=== PATIENT | female | born 1955 | race Caucasian/White ===

== ENCOUNTER 2021-05-10 09:13 | Emergency (ER) | payer MEDICARE, BC, SELFPAY ==
--- NOTE | ~2021-05-10 | CT_ITS ---
EXAMINATION: CT ABDOMEN AND PELVIS WITH CONTRAST CLINICAL INFORMATION: Left lower quadrant pain. Bloody diarrhea. COMPARISON: None TECHNIQUE: Multidetector volumetric images were obtained from the superior aspect of the liver through the pubic symphysis following administration 85 mL of Omnipaque 350 intravenous contrast. Sagittal and coronal reformatted images were obtained on the technologist's workstation. Oral contrast: Yes This CT examination was performed using dose optimization techniques as appropriate, variously including the following: *Automated exposure control *Adjustment of mA and/or kV according to patient size (this includes techniques or standardized protocols for targeted exams where dose is matched to indication/reason for exam; i.e. extremities or head) *Use of iterative reconstruction technique DLP: 598 mGy-cm FINDINGS: LUNG BASES: The visualized lung bases are unremarkable. LIVER, GALLBLADDER, AND BILIARY TREE: The liver is normal in size, shape, and attenuation. No focal hepatic lesion or biliary ductal dilatation is present. The gallbladder is unremarkable with no evidence of radiopaque gallstones, gallbladder wall thickening, or obvious pericholecystic inflammatory changes. PANCREAS: Unremarkable. SPLEEN: Unremarkable. ADRENAL GLANDS: Unremarkable. KIDNEYS AND URETERS: There are bilateral cysts, right greater than left. The largest cyst measures 3 cm in the right kidney. The kidneys are otherwise unremarkable. No imaging follow-up is needed. BLADDER: Unremarkable. GASTROINTESTINAL TRACT: There is diverticulosis of the colon. There is wall thickening of the distal left colon and stranding of the adjacent fat suggestive of mild diverticulitis. There is no evidence of obstruction, perforation or abscess. Small and large bowel is otherwise unremarkable. The appendix is unremarkable. The stomach is unremarkable.. ABDOMINAL WALL: No significant hernia is appreciated. LYMPH NODES: Normal. VASCULAR: Unremarkable. PELVIC VISCERA: Unremarkable. OSSEOUS STRUCTURES: Unremarkable. CT/CT abdomen pelvis w con IMPRESSION: Diverticulitis of the distal left colon. Bilateral renal cysts.
[2021-05-10 09:16] VITALS: BP 161/80; PULSE 91; RESP 20; TEMP 37.1; O2SAT 96; BMI 29.2
--- NOTE | 2021-05-10 11:29 | ED_ITS ---
HPI - Abdominal Pain General Chief Complaint: Abdominal Pain Stated Complaint: ABD PAIN Time Seen by Provider: 05/10/21 11:06 Source: patient Mode of arrival: ambulatory Limitations: no limitations History of Present Illness HPI narrative: 66 y/o healthy female presenting with acute onset of LLQ pain that started last night. She describes the pain as cramping. She was up frequently throughout the night with cold sweats and ongoing pain. She was nauseated but did not vomit. This morning she had an episode of blood streaked formed brown stool which prompted her to come to the ER for further evaluation. She has never had bloody stool before. No hx of any abdominal surgeries. She is not on anticoagulation or take NSAIDS regularly. She denies sick contacts. No urinary symptoms. MD elicited complaint: abdominal pain Pertinent past history: none Onset (ago): day(s) (1) Pain Consistency: constant Location: LLQ Severity: moderate Pain scale (0-10): 7 Quality: cramping Radiation: none Migration to: no migration Exacerbating factors: movement and other (palpation) Relieving factors: nothing Associated symptoms: nausea, chills and hematochezia (1 episode this morning) Related Data Previous Rx's Medication Instructions Recorded hydrocodone-acetaminophen 1 tab PO BID PRN #5 tab 05/10/21 ibuprofen 600 mg PO Q8H PRN #10 tab 05/10/21 levofloxacin 750 mg PO DAILY #10 tab 05/10/21 metronidazole [Flagyl] 500 mg PO Q12H #20 tab 05/10/21 ondansetron 4 mg PO Q8H PRN #7 tab 05/10/21 Allergies Allergy/AdvReac Type Severity Reaction Status Date / Time Unable to Assess Allergy Unverified 05/10/21 11:07 Review of Systems Review of Systems Constitutional: No Fever, + Chills ENT/Mouth: No sore throat, No Rhinorrhea, No Swallowing Difficulty Eyes: No Eye Pain, No Swelling, No Redness Cardiovascular: No Chest Pain, No SOB, No Orthopnea, No Edema Respiratory: No Cough, No Sputum, No Wheezing, No dyspnea Gastrointestinal: + Nausea, No Vomiting, No Diarrhea, + abdominal Pain, + Hematochezia, No Melena Genitourinary: No Dysuria, No Urinary Frequency, No Hematuria Musculoskeletal: No joint pain, No Myalgias Skin: No Skin Lesions, No rash Neuro: No Weakness, No Numbness, No Dizziness, No Headache Psych: + Anxiety/Panic, No Depression Heme/Lymph: No Bruising, No Lymphadenopathy Endocrine: No Polyuria, No Polydipsia Physical Exam Vital Signs: Vital Signs: Last Vital Signs Temp 98.9 F 05/10/21 13:47 Pulse 78 05/10/21 13:47 Resp 16 05/10/21 13:47 BP 138/87 05/10/21 13:47 Pulse Ox 98 05/10/21 13:47 Body Mass Index 29.2 Appearance: Alert. Oriented X3. No acute distress. Eyes: Pupils equal, round and reactive to light. ENT: Pharynx normal. Neck: Normal inspection. Neck supple. CVS: Normal heart rate and rhythm. Pulses normal. Respiratory: No respiratory distress. Breath sounds normal. Abdomen: Soft with significant LLQ tenderness, +rebound and guarding. normal +BS x4 Skin: Skin warm and dry. Normal skin color. Normal skin turgor. No rashes. Extremities: No lower extremity edema. Neuro: Oriented X 3. No motor deficit. No sensory deficit. Course Course Course Narrative: 66 y/o healthy female presenting with acute onset of LLQ pain last night and 1 episode of bloody stool today. She reports chills overnight. Concern for acute diverticulitis. Less likely appendicitis, cholecystitis or hemorrhoids. Will get labs and CT scan for further evaluation. Dispo pending results and improvement. Reevaluation(s) Reevaluation #1: No leukocytosis, lactic acid is normal. CT scan showing mild diverticulitis of distal left colon. Will give 1 dose of IV antibiotics here as well as IVF and 1 dose of IV toradol for some mild discomfort. She is stable for discharge home with PO anx, pain control, bowel rest and f/u with her doctor next week. We discussed management and warning signs to prompt urgent re- evaluation. Patient agrees with plan. MDM - Abdominal Pain Lab Data Result diagrams: 05/10/21 11:40 05/10/21 11:40 Labs: Lab Results 05/10/21 05/10/21 05/10/21 Range/Units 11:40 11:40 11:40 WBC 10.2 (4.8-10.8) X10*3/uL RBC 4.71 (4.20-5.50) X10*6/uL Hgb 12.8 (12.0-16.0) g/dl Hct 40.1 (37-47) % MCV 85.1 (80-98) fL MCH 27.2 (27.0-33.0) pg MCHC 31.9 (31.0-35.0) g/dl RDW 12.6 (11.0-16.0) % Plt Count 218 (160-400) X10*3/uL MPV 11.3 (9.4-12.3) fL Immature Gran % (Auto) 0.4 (0.0-0.4) % Neut % (Auto) 76.5 H (45-73) % Lymph % (Auto) 17.3 L (20-40) % [place] % (Auto) 4.8 (2-11) % Eos % (Auto) 0.8 (0-4) % Baso % (Auto) 0.2 (0-2) % Lymph # (Auto) 1.8 (1.2-4.9) X10*3/uL [place] # (Auto) 0.5 (0.1-1.2) X10*3/uL Eos # (Auto) 0.1 (0.0-0.4) X10*3/uL Baso # (Auto) 0.0 (0.0-0.2) X10*3/uL Abs Immat Gran (auto) 0.04 H (0.00-0.03) X10*3/uL Absolute Neuts (auto) 7.8 (2.0-8.3) X10*3/uL Absolute Nucleated RBC 0.000 (0.0-0.012) X10*3/uL Nucleated RBC % (auto) 0.0 (0.0-0.2) /100WBC Hold Blue Top SEE NOTE Sodium 141 (135-145) mmol/L Potassium 4.5 (3.3-5.1) mmol/L Chloride 108 (96-108) mmol/L Carbon Dioxide 27 (22-29) mmol/L Anion Gap 11 L (12-20) BUN 13 (9-16) mg/dL Creatinine 0.69 (0.5-1.4) mg/dL Estim Creat Clear Calc 72.8 Estimated GFR > 60 Random Glucose 99 (60-115) mg/dL Lactic Acid (0.5-2.0) mmol/L Calcium 9.1 (8.4-10.2) mg/dL Magnesium 2.3 (1.6-2.6) mg/dL Total Bilirubin 0.4 (0.0-1.0) mg/dL Direct Bilirubin < 0.2 (0.0-0.5) mg/dL AST 18 (5-31) U/L ALT 19 (0-31) U/L Alkaline Phosphatase 119 H (39-117) U/L Total Protein 6.8 (6.5-8.0) g/dL Albumin 4.1 (3.5-5.0) g/dL Lipase 18 (8-78) U/L 05/10/21 Range/Units 11:40 WBC (4.8-10.8) X10*3/uL RBC (4.20-5.50) X10*6/uL Hgb (12.0-16.0) g/dl Hct (37-47) % MCV (80-98) fL MCH (27.0-33.0) pg MCHC (31.0-35.0) g/dl RDW (11.0-16.0) % Plt Count (160-400) X10*3/uL MPV (9.4-12.3) fL Immature Gran % (Auto) (0.0-0.4) % Neut % (Auto) (45-73) % Lymph % (Auto) (20-40) % [place] % (Auto) (2-11) % Eos % (Auto) (0-4) % Baso % (Auto) (0-2) % Lymph # (Auto) (1.2-4.9) X10*3/uL [place] # (Auto) (0.1-1.2) X10*3/uL Eos # (Auto) (0.0-0.4) X10*3/uL Baso # (Auto) (0.0-0.2) X10*3/uL Abs Immat Gran (auto) (0.00-0.03) X10*3/uL Absolute Neuts (auto) (2.0-8.3) X10*3/uL Absolute Nucleated RBC (0.0-0.012) X10*3/uL Nucleated RBC % (auto) (0.0-0.2) /100WBC Hold Blue Top Sodium (135-145) mmol/L Potassium (3.3-5.1) mmol/L Chloride (96-108) mmol/L Carbon Dioxide (22-29) mmol/L Anion Gap (12-20) BUN (9-16) mg/dL Creatinine (0.5-1.4) mg/dL Estim Creat Clear Calc Estimated GFR Random Glucose (60-115) mg/dL Lactic Acid 0.8 (0.5-2.0) mmol/L Calcium (8.4-10.2) mg/dL Magnesium (1.6-2.6) mg/dL Total Bilirubin (0.0-1.0) mg/dL Direct Bilirubin (0.0-0.5) mg/dL AST (5-31) U/L ALT (0-31) U/L Alkaline Phosphatase (39-117) U/L Total Protein (6.5-8.0) g/dL Albumin (3.5-5.0) g/dL Lipase (8-78) U/L Discharge Plan Discharge Clinical Impression: Diverticulitis Patient Disposition: Home, Self-Care Instructions: Diverticulitis (ED), Diverticulitis Diet (ED) Additional Instructions: Your CT scan today showed mild diverticulitis. Take the prescribed antibiotics as directed. Start taking the metronidazole today. Start taking the levofloxacin tomorrow, you were given the 1st dose today in the ER. Allow your bowels to rest, recommend liquid diet for the next 48-72 hours. Take the prescribed medication as needed for pain. Do not drive after you take it, it can make you sleepy. Follow up with your doctor as needed. If you develop worsening abdominal pain, profuse vomiting or bloody diarrhea call 911 or come back to the ER for further evaluation. Prescriptions: New metronidazole [Flagyl] 500 mg tablet 500 mg PO Q12H Qty: 20 RF: 0 levofloxacin 750 mg tablet 750 mg PO DAILY Qty: 10 RF: 0 ibuprofen 600 mg tablet 600 mg PO Q8H PRN (Reason: pain) Qty: 10 RF: 0 hydrocodone-acetaminophen 5-325 mg tablet 1 tab PO BID PRN (Reason: pain) Qty: 5 RF: 0 ondansetron 4 mg tablet,disintegrating 4 mg PO Q8H PRN (Reason: nausea and vomiting) Qty: 7 RF: 0 Referrals: Yuni Coates MD [Primary Care Provider] - 3 days PMF Past Medical History Attestation statement: The following information was validated with the patient. Medical History Barretts esophagus Seasonal allergies Social History Social History Advance Directives: Yes Advance Directives Information Provided: Yes Advance Directives on File: No
[2021-05-10 11:46] LABS: MANUAL DIFF FLAG NO
[2021-05-10 11:48] LABS: Basophils Percent Auto 0.2 % (0-2); Eosinophils Absolute Auto 0.1 X10*3/uL (0.0-0.4); Eosinophils Percent Auto 0.8 % (0-4); Hematocrit 40.1 % (37-47); Hemoglobin 12.8 g/dl (12.0-16.0); Imm Gran Abs Auto 0.04 X10*3/uL (0.00-0.03); Imm Gran Pct Auto 0.4 % (0.0-0.4); Lymphocytes Absolute Auto 1.8 X10*3/uL (1.2-4.9); Lymphocytes Percent Auto 17.3 % (20-40); Mean Corpuscular HGB Conc 31.9 g/dl (31.0-35.0); Mean Corpuscular Hemoglobin 27.2 pg (27.0-33.0); Mean Corpuscular Volume 85.1 fL (80-98); Mean Platelet Volume 11.3 fL (9.4-12.3); Monocytes Absolute Auto 0.5 X10*3/uL (0.1-1.2); Monocytes Percent Auto 4.8 % (2-11); Neutrophils Absolute Auto 7.8 X10*3/uL (2.0-8.3); Neutrophils Percent Auto 76.5 % (45-73); Platelet Count 218 X10*3/uL (160-400); Red Blood Count 4.71 X10*6/uL (4.20-5.50); Red Cell Distribution Width 12.6 % (11.0-16.0); White Blood Count 10.2 X10*3/uL (4.8-10.8)
[2021-05-10 12:08] LABS: Lactic Acid 0.8 mmol/L (0.5-2.0)
[2021-05-10 12:13] LABS: Alanine Aminotransferase 19 U/L (0-31); Albumin Level 4.1 g/dL (3.5-5.0); Alkaline Phosphatase 119 U/L (39-117); Anion Gap 11 (12-20); Aspartate Amino Transferase 18 U/L (5-31); Bilirubin Direct < 0.2 mg/dL (0.0-0.5); Bilirubin Total 0.4 mg/dL (0.0-1.0); Blood Urea Nitrogen 13 mg/dL (9-16); Calcium 9.1 mg/dL (8.4-10.2); Carbon Dioxide 27 mmol/L (22-29); Chloride 108 mmol/L (96-108); Creatinine Clr Calc Pharmacy 72.8; Estimated Glomerular Filt Rate > 60; Glucose Random 99 mg/dL (60-115); Lipase 18 U/L (8-78); Magnesium 2.3 mg/dL (1.6-2.6); Potassium 4.5 mmol/L (3.3-5.1); Sodium 141 mmol/L (135-145); Total Protein 6.8 g/dL (6.5-8.0)
[2021-05-10] MEDS: iohexoL 350 MG/ML 100 ML INFUS..BTL IV (12:33)
[2021-05-10] MEDS: 0.9 % Sodium Chloride 1,000 ML 999 ML IVCONT (13:44)
[2021-05-10] MEDS: levoFLOXacin/D5W 750 MG/150 ML PIGGYBACK 100 MG IV (13:44)
[2021-05-10 13:47] VITALS: BP 138/87; PULSE 78; RESP 16; TEMP 37.2; O2SAT 98
== END 2021-05-10 15:17 | disposition home or self-care (01) ==
PROVIDERS: Physician Assistant; Emergency Provider Emergency Medicine Emergency Medical Services; PCP Internal Medicine Geriatric Medicine
DX: K57.32 Diverticulitis of large intestine without perforation or abscess without bleeding (principal); Q61.02 Congenital multiple renal cysts
CPT/HCPCS: 36415; 74177; 80048; 80076; 83605; 83690; 83735; 85025; 96361; 96365; 96375; 99284; J1956; Q9967

== ENCOUNTER 2021-09-03 06:23 | Day surgery (SDC) | payer MEDICARE, BC, SELFPAY ==
[2021-08-29 11:35] VITALS: BMI 26.2
--- NOTE | 2021-09-02 11:42 | P.CONAN_ITS ---
Documented by User: Mariluz Calabrese NP 09/02/21 11:43 HPI - Anesthesia Eval Consult details Narrative: 66yo F for Upper Endoscopy and Colonoscopy [facility] Past Medical History Medical History Back pain Barretts esophagus Elevated cholesterol Migraines Seasonal allergies Surgical History Surgical History History of esophagogastroduodenoscopy (EGD) Hx of colonoscopy Social History Social History (Updated 08/29/21 @ 11:35 by Lorena Jacques RN) Patient Tobacco Use Status: Former Tobacco user Quit Date: Use of substances other than those prescribed or required for medical reasons: No Are you DNR?: No Advance Directives: No Advance Directives Information Provided: No (mailed info) Advance Directives on File: No Meds Allergies Allergy/AdvReac Type Severity Reaction Status Date / Time No Known Allergies Allergy Verified 08/29/21 11:34 Home Medications Medication Instructions Recorded Confirmed Last Taken Type loratadine 10 mg tablet (Claritin) 10 mg PO DAILY 08/29/21 09/03/21 09/03/21 05:00 History pantoprazole 40 mg tablet,delayed 1 tab PO DAILY@1700 08/29/21 08/29/21 Unknown History release Exam Exam Date and Time: September 02, 2021 1142 Height,Weight and Vital Signs: Height 5 ft 3 in Weight 67.132 kg Assessment and Plan Assessment Anesthesia Assessment: Chart Reviewed Documented by User: Manny Lynch MD 09/03/21 07:36 [facility] Past Medical History Medical History Back pain Barretts esophagus Elevated cholesterol Migraines Seasonal allergies Family History Family history of problems with anesthesia: No Surgical History Surgical History History of esophagogastroduodenoscopy (EGD) Hx of colonoscopy History of Problems with Anesthesia: No Social History Social History (Updated 08/29/21 @ 11:35 by Lorena Jacques RN) Patient Tobacco Use Status: Former Tobacco user Quit Date: Use of substances other than those prescribed or required for medical reasons: No Are you DNR?: No Advance Directives: No Advance Directives Information Provided: No (mailed info) Advance Directives on File: No Meds Allergies Allergy/AdvReac Type Severity Reaction Status Date / Time No Known Allergies Allergy Verified 08/29/21 11:34 Home Medications Medication Instructions Recorded Confirmed Last Taken Type loratadine 10 mg tablet (Claritin) 10 mg PO DAILY 08/29/21 09/03/21 09/03/21 05:00 History pantoprazole 40 mg tablet,delayed 1 tab PO DAILY@1700 08/29/21 08/29/21 Unknown History release Exam Airway Mallampati Class: II TM Dist: >3cm Neck ROM: Full Other: Bug bite on upper left lip Assessment and Plan Assessment Anesthesia Assessment: Anesthesia Plan Discussed Final Anesthetic Review Family History of Problems with Anesthesia: No History of Problems with Anesthesia: No NPO: Yes ASA Class: II Final Preanesthetic Review: No Changes in Pt Med Stat, Meds/Allgs Chart Reviewed, Consent Obtained/Reviewed and Anes Risks/Benef Reviewed Patient Risk: Low Procedure Risk: Low Anesthetic Plan Anesthetic Plan: MAC: Disposition: Standard PACU
[2021-09-03 06:48] VITALS: BP 151/83; PULSE 77; RESP 16; TEMP 35.7; O2SAT 98
[2021-09-03] MEDS: Lactated Ringers 1,000 ML 100 ML IVCONT (06:52)
--- NOTE | 2021-09-03 07:21 | MHC.SHP ---
Pre-Procedural Eval Section A Date of Service: 09/03/21 Section B Chief Complaint: Diverticulitis,miller's Details of Present Illness: see H&P no changes Relevant Family History (Specify if Yes): No Relevant Social History: None Present Medications: see Short Stay Collaborative assessment Medical History: No relevant PMH Allergies: Allergies Allergy/AdvReac Type Severity Reaction Status Date / Time No Known Allergies Allergy Verified 08/29/21 11:34 Review of Systems Sugical H&P ROS: Negative: Constitution, Cardiovascular, Respiratory, Neurological, Psychiatric, Hem-Onc, Allergic/Immunologic, Gastrointestinal, Genitourinary, Musculoskeletal, Integumentary, Endocrine and Eyes/Ears/Nose/Throat Exam Surgical H&P Exam: Normal: HEENT, Normal: Heart, Normal: Lungs, Normal: Extremities, Normal: Abdomen, Normal: Skin and Normal: Neurological Plan Diagnosis/Plan: Unchanged I have reviewed the history and physical and performed a pertinent physical examination on my patient. No changes have occurred unless specified.
--- NOTE | 2021-09-03 08:06 | PM.OP ---
Brief Operative Note Date of Service: 09/03/21 Pre-op diagnosis: barretts,diverticulitis Post-op diagnosis: same Procedure: EGD,colon Surgeon: Ritchie Mason Anesthesia: MAC Was an Patient Scheduling Coordinator used for this Procedure?: No Estimated blood loss (mL): 2 Pathology: other (bxs egj) Condition: stable Disposition: PACU
[2021-09-03 08:09] VITALS: BP 84/40; PULSE 73; RESP 16; TEMP 36.7; O2SAT 98
[2021-09-03 08:24] VITALS: BP 96/61; PULSE 69; RESP 16; TEMP 36.7; O2SAT 96
[2021-09-03 08:39] VITALS: BP 120/63; PULSE 60; RESP 17; TEMP 36.7; O2SAT 98
--- NOTE | 2021-09-03 09:49 | OP_ITS ---
SURGEON: Ritchie Mason MD INDICATIONS: 1. Salazar's esophagus. 2. Diverticulitis. PREOPERATIVE DIAGNOSIS: POSTOPERATIVE DIAGNOSIS: PROCEDURE PERFORMED: Upper endoscopy with biopsy, colonoscopy to the terminal ileum. ESTIMATED BLOOD LOSS: COMPLICATIONS: ANESTHESIA: ASSISTANTS: SPECIMENS: MEDICATIONS: Monitored anesthesia care. DESCRIPTION OF PROCEDURE: History and physical performed. The risks and benefits of the procedure were explained to the patient. Informed consent was obtained. The patient was placed in the left lateral decubitus position. The Olympus video gastroscope was introduced into the esophagus, stomach, and duodenum. Examination was performed and the scope was removed. She tolerated the procedure well and was repositioned for colonoscopy. Digital rectal exam was performed and was found to be normal. The Olympus pediatric video colonoscope was introduced into the rectum and advanced to the cecum without difficulty. The cecum was identified by transillumination, palpation, and identification of ileocecal valve. Examination was performed and the scope was removed. She tolerated the both procedures well and was taken to recovery area in stable condition. FINDINGS: UPPER ENDOSCOPY: Esophagus: The esophagus showed an irregular EG junction. There was no esophagitis. Biopsies were obtained from the EG junction. There were no raised lesions or ulcerated areas. Stomach: The stomach showed no evidence of masses, ulcers, or lesions except for several small benign-appearing polyps in the body and fundus consistent with fundic gland polyps. Duodenum: The bulb and second portion were normal. COLONOSCOPY: The terminal ileum was examined and appeared normal. The visualized colonic mucosa was within normal limits without evidence of masses or ulcers. There was mild to moderate diverticulosis involving the sigmoid without any evidence of diverticulitis. No polyps were identified. The quality of the prep was good. Retroflexed examination was normal. IMPRESSION: 1. Salazar's esophagus. 2. Diverticulosis. RECOMMENDATIONS: 1. Follow up the biopsy results. 2. Repeat colonoscopy is recommended in 10 years for average risk individuals. MD BOBO Marin/SOLA / [id number]
== END 2021-09-03 09:10 | disposition home or self-care (01) ==
PROVIDERS: PCP Internal Medicine Geriatric Medicine; Visit Provider Internal Medicine Gastroenterology
PROC: (CPT 45378; principal; 2021-09-03 07:30)
DX: K57.30 Diverticulosis of large intestine without perforation or abscess without bleeding (principal); Z86.010 Personal history of colon polyps; K31.7 Polyp of stomach and duodenum; K22.70 Barrett's esophagus without dysplasia; K21.9 Gastro-esophageal reflux disease without esophagitis; Z79.899 Other long term (current) drug therapy
CPT/HCPCS: 45378; 43239; 88305; J3010

== ENCOUNTER 2021-10-16 11:30 | Outpatient (REF) | payer MEDICARE, BC, SELFPAY ==
[2021-10-16 12:43] LABS: Hematocrit 41.9 % (37.0-47.0); Hemoglobin 13.2 g/dl (12.0-16.0); Mean Corpuscular HGB Conc 31.5 g/dl (31.0-35.0); Mean Corpuscular Hemoglobin 27.3 pg (27.0-33.0); Mean Corpuscular Volume 86.6 fL (80.0-98.0); Mean Platelet Volume 11.9 fL (9.4-12.3); Platelet Count 233 X10*3/uL (160-400); Red Blood Count 4.84 X10*6/uL (4.20-5.50); White Blood Count 8.6 X10*3/uL (4.8-10.8)
[2021-10-16 13:11] LABS: Alanine Aminotransferase 19 U/L (0-31); Albumin Level 4.2 g/dL (3.5-5.0); Alkaline Phosphatase 113 U/L (39-117); Aspartate Amino Transferase 17 U/L (5-31); Bilirubin Direct < 0.2 mg/dL (0.0-0.5); Bilirubin Total 0.4 mg/dL (0.0-1.0); Blood Urea Nitrogen 18 mg/dL (9-16); Estimated Glomerular Filt Rate > 60; Lipase 33 U/L (8-78); Total Protein 7.2 g/dL (6.5-8.0)
== END 2021-10-16 11:31 | disposition home or self-care (01) ==
LOC: HO.LAB 11:30
PROVIDERS: PCP Internal Medicine Geriatric Medicine; Visit Provider Internal Medicine Gastroenterology
DX: K57.32 Diverticulitis of large intestine without perforation or abscess without bleeding (principal)
CPT/HCPCS: 36415; 80076; 82565; 83690; 84520; 85027

== ENCOUNTER 2021-10-21 07:50 | Outpatient (REF) | payer MEDICARE, SELFPAY ==
--- NOTE | ~2021-10-21 | CT_ITS ---
EXAMINATION: CT ABDOMEN AND PELVIS WITH CONTRAST CLINICAL INFORMATION: Diverticulitis of the large intestine COMPARISON: 05/10/2021 TECHNIQUE: Multidetector volumetric images were obtained from the superior aspect of the liver through the pubic symphysis following administration 85 mL of Omnipaque 350 intravenous contrast. Sagittal and coronal reformatted images were obtained on the technologist's workstation. Oral contrast: Yes This CT examination was performed using dose optimization techniques as appropriate, variously including the following: *Automated exposure control *Adjustment of mA and/or kV according to patient size (this includes techniques or standardized protocols for targeted exams where dose is matched to indication/reason for exam; i.e. extremities or head) *Use of iterative reconstruction technique DLP: 341 mGy-cm FINDINGS: LUNG BASES: The visualized lung bases are unremarkable. LIVER, GALLBLADDER, AND BILIARY TREE: The liver is normal in size, shape, and attenuation. No focal hepatic lesion or biliary ductal dilatation is present. The gallbladder is unremarkable with no evidence of radiopaque gallstones, gallbladder wall thickening, or obvious pericholecystic inflammatory changes. PANCREAS: Unremarkable. SPLEEN: Unremarkable. ADRENAL GLANDS: Unremarkable. KIDNEYS AND URETERS: Symmetric bilateral renal enhancement. No hydronephrosis, calculi, or solid mass. Multiple bilateral renal cysts are present, similar to the prior study; no imaging follow-up recommended. BLADDER: Unremarkable. GASTROINTESTINAL TRACT: Stomach and small bowel are nondilated. Oral contrast distally to the colon. The appendix is normal. Sigmoid diverticulosis. Previously seen inflammatory changes adjacent the left colon have resolved. No findings to suggest colitis or diverticulitis. ABDOMINAL WALL: No significant hernia is appreciated. LYMPH NODES: Normal. VASCULAR: Normal caliber aorta. PELVIC VISCERA: The uterus and adnexa are unremarkable. OSSEOUS STRUCTURES: Unremarkable. CT/CT abdomen pelvis w con IMPRESSION: Previously seen mild acute diverticulitis of the left colon has resolved. No acute CT findings. Fleischner guidelines were followed.
[2021-10-21] MEDS: iohexoL 350 MG/ML 100 ML INFUS..BTL IV (08:33)
== END 2021-10-21 07:51 | disposition home or self-care (01) ==
LOC: HO.CT 07:50
PROVIDERS: PCP Internal Medicine Geriatric Medicine; Visit Provider Internal Medicine Gastroenterology
DX: K57.32 Diverticulitis of large intestine without perforation or abscess without bleeding (principal)
CPT/HCPCS: 74177; Q9967

== ENCOUNTER 2021-11-12 09:09 | Emergency (ER) | payer MEDICARE, SELFPAY ==
--- NOTE | ~2021-11-12 | NM_ITS ---
EXAMINATION: HIDA SCAN WITHOUT PHARMACEUTICAL DRUG. CLINICAL INFORMATION: Acalculus cholecystitis. Right upper quadrant abdominal pain COMPARISON: None TECHNIQUE: Following intravenous administration of 5 mCi of 90 9M technetium mebrofenin, imaging over the right upper quadrant was obtained up to 60 minutes. At 75 minutes 8 ounces ensure was administered and further imaging was obtained up to 60 minutes. FINDINGS: There is normal hepatic uptake without any focal defect. There is prompt visualization of common bile duct by 9 minutes and gallbladder by 55 minutes. Post CCK the gallbladder ejection fraction at 60 minutes is 20%, abnormal. NM/NM hepatobiliary wo pharm IMPRESSION: Abnormal gallbladder ejection fraction of 28% at 60 minutes suggestive of dyskinetic gallbladder likely related to cholecystitis. The CBD is patent. There is normal liver uptake.
[2021-11-12 09:59] VITALS: BP 157/80; PULSE 76; RESP 18; TEMP 36.6; O2SAT 100; BMI 25.7
--- NOTE | 2021-11-12 10:53 | ED.ABDPAIN ---
HPI - Abdominal Pain General Chief Complaint: Abdominal Pain Stated Complaint: Abd pain Time Seen by Provider: 11/12/21 10:17 Source: patient Mode of arrival: ambulatory Limitations: no limitations History of Present Illness HPI narrative: This is a 66-year-old female past medical history significant for migraines, Salazar's esophagus presenting to the emergency department with right upper quadrant pain and nausea x7 months progressively worsening over the past week. Patient tells me that Dr. Mason is her GI doctor who has evaluated her multiple times, he ordered a CT scan of her abdomen and pelvis on October 21 which she had done here, patient tells me that it did not show any abnormalities. Patient tells me over the past week her abdominal pain has been worsening, she tells me it is worse with eating, better when she is not eating. Because of this, she went to her PCPs yesterday and they ordered an outpatient right upper quadrant ultrasound. Patient is concerned about her results. Denies SOB, CP, vomiting, headache, dizziness. MD elicited complaint: abdominal pain Pertinent past history: diverticulitis Onset (ago): month(s) (7) Pain Consistency: intermittent Location: RUQ Severity: moderate Pain scale (0-10): 6 Radiation: none Migration to: no migration Exacerbating factors: eating Relieving factors: nothing Context: history of similar episodes Associated symptoms: nausea Related Data Home Medications Medication Instructions Recorded Confirmed loratadine 10 mg tablet (Claritin) 10 mg PO DAILY 08/29/21 09/03/21 pantoprazole 40 mg tablet,delayed 1 tab PO DAILY@1700 08/29/21 08/29/21 release Allergies Allergy/AdvReac Type Severity Reaction Status Date / Time No Known Allergies Allergy Verified 11/12/21 09:59 Review of Systems Review of Systems Constitutional : No Weight loss, No Fever, No Chills, No Fatigue, No Malaise ENT/Mouth : No sore throat, No Rhinorrhea Eyes: No Eye Pain, No Swelling, No Redness Cardiovascular : No Chest Pain, No SOB, No Dyspnea on Exertion, No Orthopnea, No Edema, No Palpitations Respiratory : No Cough, No Sputum, No Wheezing Gastrointestinal : + Nausea, No Vomiting, No Diarrhea, No Constipation, No abdominal Pain, No Hematochezia, No Melena Genitourinary : No Dysuria, No Urinary Frequency, No Hematuria, Musculoskeletal : No joint pain, No Myalgias, No Joint Swelling Skin : No Skin Lesions, No rash Neuro : No Weakness, No Numbness, No Dizziness, No Headache All other systems reviewed and are negative Yes all other systems are reviewed and are negative Physical Exam Vital Signs: Vital Signs: Last Vital Signs Temp 97.7 F 11/12/21 11:43 Pulse 64 11/12/21 11:43 Resp 16 11/12/21 11:43 BP 137/78 11/12/21 11:43 Pulse Ox 96 11/12/21 12:08 BMI result Body Mass Index 25.7 Appearance: Alert.? Oriented X3.? No acute distress.? Head: Normocephalic, atraumatic, no step-offs or deformities Eyes: Pupils equal, round and reactive to light.? ENT: Pharynx normal.? Neck: Normal inspection.? Neck supple.? CVS: Normal heart rate and rhythm.? Pulses normal.? Respiratory: No respiratory distress.? Breath sounds normal.? Abdomen: Soft and + tender to RUQ + Hood sign. Normative bowel sounds.? Skin: Skin warm and dry.? Normal skin color.? Normal skin turgor.?No jaundice Extremities: No lower extremity edema.? No calf ttp. 5/5 strength to bilateral upper and lower extremities Back: No midline tenderness, no C-spine tenderness, full range of motion, no CVA tenderness bilaterally Neuro: Oriented X 3.? No motor deficit.? No sensory deficit. Course Reevaluation(s) Reevaluation #1: Spoke to Dr. Mason who is patient's GI doctor. Recommends an MRI to further evaluate the bile duct. I will also reach out to surgery for their input. Dr. Mason tells me patient has had an endoscopy and colonoscopy with no abnormalities. It abdomen pelvis CT showed diverticulitis which has been improving he does that this is diverticulitis. He tells me this sounds like acalous cholecystitis. Time: 11:29 Reevaluation #2: At this time a HIDA scan has been ordered at the request of Dr. Lombardo. Dr. Mason is aware. CBC within normal limits, chemistry with no acute abnormalities, bilirubin and transaminases within normal limits. Alk-phos normal. Time: 12:15 Reevaluation #3: HIDA scan w/ Abnormal gallbladder ejection fraction of 28% at 60 minutes suggestive of dyskinetic gallbladder likely related to cholecystitis.The CBD is patent.There is normal liver uptake. Discuss this with who suggest out patient follow up. I agree with plan, so does patient. Comfortable with D/C home w/ gen surgery follow up. Time: 17:10 MDM - Abdominal Pain MDM Narrative Medical decision making narrative: [id number] 66 yo F presents to the emergency department with right upper quadrant pain that is been present since May progressively worsening over the past few days, worsened by eating. She is followed by Dr. Mason GI was done a CT of the abdomen and pelvis on her, the last CT was done on October 21 2021, according to chart review it showed mild acute diverticulitis of the left colon. per patient she was treated for diverticulitis. yesterday she had an ultrasound of the right upper quadrant done at of her primary care provider's office, the ultrasound impression was mildly dilated common bile duct without visualized obstructing process. Consider further evaluation with MRCP. . Upon physical examination there is pain to palpation of the right upper quadrant, positive Hood sign. Abdomen is soft nondistended with normoactive bowel sounds. Regular rate and rhythm. Lungs are clear. No focal neuro deficits Plan- Basic labs and speak to . Medical Records Attestation: I reviewed the patient's medical records. Lab Data Attestation: I reviewed the patient's lab results. Result diagrams: 11/12/21 11:08 11/12/21 11:08 Labs: Lab Results 11/12/21 11/12/21 11/12/21 Range/Units 11:08 11:08 11:08 WBC 6.8 (4.8-10.8) X10*3/uL RBC 4.88 (4.20-5.50) X10*6/uL Hgb 13.4 (12.0-16.0) g/dl Hct 41.5 (37.0-47.0) % MCV 85.0 (80.0-98.0) fL MCH 27.5 (27.0-33.0) pg MCHC 32.3 (31.0-35.0) g/dl RDW 12.9 (11.0-16.0) % Plt Count 246 (160-400) X10*3/uL MPV 10.9 (9.4-12.3) fL Immature Gran % (Auto) 0.3 (0.0-0.4) % Neut % (Auto) 61.5 (45-73) % Lymph % (Auto) 31.9 (20-40) % [place] % (Auto) 4.7 (2-11) % Eos % (Auto) 1.3 (0-4) % Baso % (Auto) 0.3 (0-2) % Lymph # (Auto) 2.2 (1.2-4.9) X10*3/uL [place] # (Auto) 0.3 (0.1-1.2) X10*3/uL Eos # (Auto) 0.1 (0.0-0.4) X10*3/uL Baso # (Auto) 0.0 (0.0-0.2) X10*3/uL Abs Immat Gran (auto) 0.02 (0.00-0.03) X10*3/uL Absolute Neuts (auto) 4.2 (2.0-8.3) x10*3/uL Absolute Nucleated RBC 0.000 (0.0-0.012) X10*3/uL Nucleated RBC % (auto) 0.0 (0.0-0.2) /100WBC Sodium 142 (135-145) mmol/L Potassium 4.0 (3.3-5.1) mmol/L Chloride 107 (96-108) mmol/L Carbon Dioxide 30 H (22-29) mmol/L Anion Gap 9 L (12-20) BUN 14 (9-16) mg/dL Creatinine 0.76 (0.5-1.4) mg/dL Estim Creat Clear Calc 67.1 Estimated GFR > 60 Random Glucose 89 (60-115) mg/dL Calcium 9.4 (8.4-10.2) mg/dL Magnesium 2.2 (1.6-2.6) mg/dL Total Bilirubin 0.4 (0.0-1.0) mg/dL AST 15 (5-31) U/L ALT 24 (0-31) U/L Alkaline Phosphatase 108 (39-117) U/L Total Protein 7.0 (6.5-8.0) g/dL Albumin 4.2 (3.5-5.0) g/dL Lipase 22 (8-78) U/L Urine Color Urine Appearance Urine pH (5.0-8.0) Ur Specific [place] (1.005-1.025) Urine Protein (NEG-TRACE) MG/DL Urine Glucose (UA) (NEG) MG/DL Urine Ketones (NEG) MG/DL Urine Blood (NEG) Urine Nitrite (NEG) Ur Leukocyte Esterase (NEG) Urine RBC (0) /HPF Urine WBC (0-4) /HPF Ur Squamous Epith Cells /LPF Urine Bacteria /LPF COVID-19 (BRENT) Negative (Negative) COVID-19 Clin Com See Note 11/12/21 Range/Units 11:08 WBC (4.8-10.8) X10*3/uL RBC (4.20-5.50) X10*6/uL Hgb (12.0-16.0) g/dl Hct (37.0-47.0) % MCV (80.0-98.0) fL MCH (27.0-33.0) pg MCHC (31.0-35.0) g/dl RDW (11.0-16.0) % Plt Count (160-400) X10*3/uL MPV (9.4-12.3) fL Immature Gran % (Auto) (0.0-0.4) % Neut % (Auto) (45-73) % Lymph % (Auto) (20-40) % [place] % (Auto) (2-11) % Eos % (Auto) (0-4) % Baso % (Auto) (0-2) % Lymph # (Auto) (1.2-4.9) X10*3/uL [place] # (Auto) (0.1-1.2) X10*3/uL Eos # (Auto) (0.0-0.4) X10*3/uL Baso # (Auto) (0.0-0.2) X10*3/uL Abs Immat Gran (auto) (0.00-0.03) X10*3/uL Absolute Neuts (auto) (2.0-8.3) x10*3/uL Absolute Nucleated RBC (0.0-0.012) X10*3/uL Nucleated RBC % (auto) (0.0-0.2) /100WBC Sodium (135-145) mmol/L Potassium (3.3-5.1) mmol/L Chloride (96-108) mmol/L Carbon Dioxide (22-29) mmol/L Anion Gap (12-20) BUN (9-16) mg/dL Creatinine (0.5-1.4) mg/dL Estim Creat Clear Calc Estimated GFR Random Glucose (60-115) mg/dL Calcium (8.4-10.2) mg/dL Magnesium (1.6-2.6) mg/dL Total Bilirubin (0.0-1.0) mg/dL AST (5-31) U/L ALT (0-31) U/L Alkaline Phosphatase (39-117) U/L Total Protein (6.5-8.0) g/dL Albumin (3.5-5.0) g/dL Lipase (8-78) U/L Urine Color YELLOW Urine Appearance HAZY Urine pH 6.0 (5.0-8.0) Ur Specific [place] 1.015 (1.005-1.025) Urine Protein NEG (NEG-TRACE) MG/DL Urine Glucose (UA) NEG (NEG) MG/DL Urine Ketones NEG (NEG) MG/DL Urine Blood TRACE (NEG) Urine Nitrite NEG (NEG) Ur Leukocyte Esterase NEG (NEG) Urine RBC 0-2 (0) /HPF Urine WBC 0-2 (0-4) /HPF Ur Squamous Epith Cells 2+ /LPF Urine Bacteria NONE /LPF COVID-19 (BRENT) (Negative) COVID-19 Clin Com Imaging Data HIDA scan : Attestation: I personally reviewed and interpreted this imaging study as follows: Radiologist's impression: NM/NM hepatobiliary wo pharm IMPRESSION: Abnormal gallbladder ejection fraction of 28% at 60 minutes suggestive of dyskinetic gallbladder likely related to cholecystitis. ? The CBD is patent. ? There is normal liver uptake. Critical Care Time Critical Care Time Critical Care Time: No Discharge Plan Discharge Clinical Impression: Acalculous cholecystitis Patient Disposition: Home, Self-Care Instructions: Cholecystitis (ED) Additional Instructions: Take your medications as prescribed. If you were prescribed antibiotics today, it is important that you take your medication to their entirety, do not skip any doses, do not finish them early. Follow-up with your primary care provider this week. Follow up with GI and surgery this week. Return to the emergency department with new or worsening symptoms. In case of emergency call 911 Prescriptions: No Action pantoprazole 40 mg tablet,delayed release (DR/EC) 1 tab PO DAILY@1700 RF: 0 loratadine [Claritin] 10 mg Tablet 10 mg PO DAILY RF: 0 Referrals: Ritchie Mason [Physician] - 2 days Stefan Lombardo MD [Physician] - 2 days Stand Alone Forms: Work/School Release [facility] Past Medical History Attestation statement: The following information was validated with the patient. Source: old records reviewed and nursing notes reviewed Medical History Back pain Barretts esophagus Elevated cholesterol Migraines Seasonal allergies Surgical History History of esophagogastroduodenoscopy (EGD) Hx of colonoscopy Social History Social History Alcohol intake: never Patient Tobacco Use Status: Former Tobacco user Quit Date: Use of substances other than those prescribed or required for medical reasons: No Advance Directives: No Advance Directives Information Provided: No
[2021-11-12] MEDS: 0.9 % Sodium Chloride 1,000 ML 999 ML IV (11:08)
[2021-11-12 11:18] LABS: Appearance Urine HAZY; Color Urine YELLOW; Glucose Urine UA NEG (NEG); Leukocyte Esterase Urine NEG (NEG); MANUAL DIFF FLAG NO; Nitrite Urine NEG (NEG); Specific Gravity - Urine 1.015 (1.005-1.025); UACC Culture Trigger NO; Urine Blood TRACE (NEG); Urine Ketones NEG (NEG); Urine Protein NEG (NEG-TRACE)
[2021-11-12 11:21] LABS: Basophils Percent Auto 0.3 % (0-2); Eosinophils Absolute Auto 0.1 X10*3/uL (0.0-0.4); Eosinophils Percent Auto 1.3 % (0-4); Hematocrit 41.5 % (37.0-47.0); Hemoglobin 13.4 g/dl (12.0-16.0); Imm Gran Abs Auto 0.02 X10*3/uL (0.00-0.03); Imm Gran Pct Auto 0.3 % (0.0-0.4); Lymphocytes Absolute Auto 2.2 X10*3/uL (1.2-4.9); Lymphocytes Percent Auto 31.9 % (20-40); Mean Corpuscular HGB Conc 32.3 g/dl (31.0-35.0); Mean Corpuscular Hemoglobin 27.5 pg (27.0-33.0); Mean Platelet Volume 10.9 fL (9.4-12.3); Monocytes Absolute Auto 0.3 X10*3/uL (0.1-1.2); Monocytes Percent Auto 4.7 % (2-11); Neutrophils Absolute Auto 4.2 x10*3/uL (2.0-8.3); Neutrophils Percent Auto 61.5 % (45-73); Platelet Count 246 X10*3/uL (160-400); Red Blood Count 4.88 X10*6/uL (4.20-5.50); Red Cell Distribution Width 12.9 % (11.0-16.0); White Blood Count 6.8 X10*3/uL (4.8-10.8)
[2021-11-12 11:29] LABS: RBC Urine 0-2 /HPF (0); Squamous Epithelial Cell Urine 2+ /LPF; WBC Urine 0-2 /HPF (0-4)
--- NOTE | 2021-11-12 11:30 | PC.NURSE ---
iv inserted, labs drawn, ivf started per order, urine obtained, pt awaiting provider and results of testing, will continue to monitor.
[2021-11-12 11:34] LABS: COVID-19 Test Negative (Negative); IDNOW Serial# 08D9AD1C
[2021-11-12 11:43] VITALS: BP 137/78; PULSE 64; RESP 16; TEMP 36.5; O2SAT 98
[2021-11-12 11:48] LABS: Alanine Aminotransferase 24 U/L (0-31); Albumin Level 4.2 g/dL (3.5-5.0); Alkaline Phosphatase 108 U/L (39-117); Anion Gap 9 (12-20); Aspartate Amino Transferase 15 U/L (5-31); Bilirubin Total 0.4 mg/dL (0.0-1.0); Blood Urea Nitrogen 14 mg/dL (9-16); Calcium 9.4 mg/dL (8.4-10.2); Carbon Dioxide 30 mmol/L (22-29); Chloride 107 mmol/L (96-108); Creatinine Clr Calc Pharmacy 67.1; Estimated Glomerular Filt Rate > 60; Glucose Random 89 mg/dL (60-115); Lipase 22 U/L (8-78); Magnesium 2.2 mg/dL (1.6-2.6); Sodium 142 mmol/L (135-145)
[2021-11-12 12:07] VITALS: O2SAT 96
[2021-11-12 12:08] VITALS: O2SAT 96
--- NOTE | 2021-11-12 13:06 | PM.CNGS ---
History of Present Illness Consult details Consult date: 11/12/21 Reason for consult: abdominal pain Narrative: 66-year-old female patient presenting with complaints of abdominal pain in the right upper quadrant for the last several weeks. Patient has a prior history of diverticulitis is being followed by Dr. Mason. A CT of the abdomen and pelvis was obtained which revealed a normal appearing gallbladder with no gallstones and no wall thickening. Laboratories revealed normal WBC and normal LFTs. Patient reports the pain increases with food and subsequently she is not eating very much for the last several weeks. She reports feeling nauseous but denies diarrhea or constipation. In the emergency department she was noted to be tender in the right upper quadrant suggestive of acute cholecystitis. Surgical consultation is requested for management of possible acalculous cholecystitis. Review of Systems Review of Systems: Yes all other systems are reviewed and are negative Constitutional: Constitutional: Reports anorexia, Denies chills, Denies fever(s) and Denies weakness Cardiovascular: Cardiovascular: Denies chest pain, Denies irregular heart rhythm, Denies Loss of Consciousness and Denies dyspnea Respiratory: Respiratory: Denies chest congestion, Denies cough and Denies dyspnea Gastrointestinal: Gastrointestinal: Reports as per HPI Musculoskeletal: Musculoskeletal: Reports no additional musculoskeletal complaints Neurologic: Denies weakness PMFSH Past Medical History Medical History Back pain Barretts esophagus Elevated cholesterol Migraines Seasonal allergies Surgical History Surgical History History of esophagogastroduodenoscopy (EGD) Hx of colonoscopy Social History Social History Alcohol intake: never Patient Tobacco Use Status: Former Tobacco user Quit Date: Meds Allergies Allergy/AdvReac Type Severity Reaction Status Date / Time No Known Allergies Allergy Verified 11/14/21 09:23 Home Medications Medication Instructions Recorded Confirmed Last Taken Type loratadine 10 mg tablet (Claritin) 10 mg PO DAILY 08/29/21 09/03/21 09/03/21 05:00 History pantoprazole 40 mg tablet,delayed 1 tab PO DAILY@1700 08/29/21 08/29/21 Unknown History release Physical Exam Vital Signs: Vital Signs: Last Vital Signs Temp 97.7 F 11/12/21 11:43 Pulse 64 11/12/21 11:43 Resp 16 11/12/21 11:43 BP 137/78 11/12/21 11:43 Pulse Ox 96 11/12/21 12:08 BMI result Body Mass Index 25.7 Const: General: cooperative, comfortable and no acute distress Nutritional Appearance: well nourished Orientation/consciousness: patient oriented x3 Limitations: no limitations HENMT: Head: Yes normocephalic and Yes atraumatic Ears: hearing grossly normal bilaterally GI: Palpation (GI): Soft to palpation, Tenderness to palpation present (GI) in the RUQ; Negative for Hood's sign negative, no hepatosplenomegaly and No Rebound tenderness present Auscultation: normal bowel sounds Rectal Exam - Female: deferred Skin: General skin exam: no rashes or lesions noted Neuro: General: patient oriented x3 Extrem: General: Yes no clubbing, cyanosis or edema Results Labs Result diagrams: 11/12/21 11:08 11/12/21 11:08 Labs: Abnormal lab results 11/12/21 Range/Units 11:08 Carbon Dioxide 30 H (22-29) mmol/L Anion Gap 9 L (12-20) Short CBC 11/12/21 Range/Units 11:08 WBC 6.8 (4.8-10.8) X10*3/uL Hgb 13.4 (12.0-16.0) g/dl Hct 41.5 (37.0-47.0) % Plt Count 246 (160-400) X10*3/uL BMP 11/12/21 11:08 Sodium 142 Potassium 4.0 Chloride 107 Carbon Dioxide 30 H BUN 14 Creatinine 0.76 Calcium 9.4 Liver Function 11/12/21 Range/Units 11:08 Total Bilirubin 0.4 (0.0-1.0) mg/dL AST 15 (5-31) U/L ALT 24 (0-31) U/L Alkaline Phosphatase 108 (39-117) U/L Albumin 4.2 (3.5-5.0) g/dL Urine 11/12/21 Range/Units 11:08 Urine Color YELLOW Urine Appearance HAZY Urine pH 6.0 (5.0-8.0) Ur Specific [place] 1.015 (1.005-1.025) Urine Protein NEG (NEG-TRACE) MG/DL Urine Glucose (UA) NEG (NEG) MG/DL All other labs normal. Assessment and Plan (1) Acalculous cholecystitis: Status: Acute 66-year-old female patient presenting with complaints of right upper quadrant abdominal pain of several weeks duration found to be tender in the right upper quadrant. CT of the abdomen and pelvis revealed a normal appearing gallbladder with no stones or wall thickening. Laboratories however revealed a normal white count, normal liver function tests and normal alkaline phosphatase. A HIDA scan with CCK is recommended to better evaluate gallbladder function. If this is normal suggest gastroenterology consultation. Procedures Date of Service Date of Service: 11/12/21
--- NOTE | 2021-11-12 13:19 | PC.NURSE ---
patient to nuclear med
[2021-11-12 17:30] VITALS: BP 133/75; PULSE 71; RESP 16; TEMP 36.6; O2SAT 97
== END 2021-11-12 17:33 | disposition home or self-care (01) ==
PROVIDERS: Physician Assistant; Emergency Provider Emergency Medicine; PCP Internal Medicine Geriatric Medicine
DX: K80.40 Calculus of bile duct with cholecystitis, unspecified, without obstruction (principal); R10.11 Right upper quadrant pain; Z20.822 Contact with and (suspected) exposure to COVID-19
CPT/HCPCS: 78226; 80053; 81001; 83690; 83735; 85025; 87635; 96360; 99284; 99285; A9537

== ENCOUNTER → 2021-11-14 09:12 | Outpatient (BNVA) | payer MEDICARE, SELFPAY | PROVIDERS: PCP Internal Medicine Geriatric Medicine; Visit Provider Surgery | DX: K82.8 Other specified diseases of gallbladder (principal) | CPT/HCPCS: 99212 ==

== ENCOUNTER 2021-11-20 05:59 | Day surgery (SDC) | payer MEDICARE, SELFPAY ==
[2021-11-20] VITALS (12 sets, daily range): BP systolic 107–150; BP diastolic 45–76; PULSE 50–74; RESP 12–18; TEMP 36.1–36.8; O2SAT 96–100; BMI 25.7
[2021-11-20] MEDS: Lactated Ringers 1,000 ML 100 ML IVCONT (06:22)
--- NOTE | 2021-11-20 07:16 | P.CONAN_ITS ---
HPI - Anesthesia Eval Consult details Narrative: 66 F for laproscopic cholecystectomy PMFSH Active Problems Active Problems: All Active Problems (Updated 11/14/21 @ 09:41 by Stefan Lombardo MD) Biliary dyskinesia (Acute) Acalculous cholecystitis (Acute) Past Medical History Medical History Back pain Barretts esophagus Biliary dyskinesia Diverticulitis Elevated cholesterol Migraines Seasonal allergies Family History Family History Mother Lung cancer, Onset Age: 50 Father Renal cancer Family history of problems with anesthesia: No Surgical History Surgical History History of esophagogastroduodenoscopy (EGD) Hx of colonoscopy History of Problems with Anesthesia: No Social History Social History Alcohol intake: never Patient Tobacco Use Status: Former Tobacco user Quit Date: Use of substances other than those prescribed or required for medical reasons: No Are you DNR?: No Advance Directives: No Advance Directives Information Provided: No Meds Allergies Allergy/AdvReac Type Severity Reaction Status Date / Time No Known Allergies Allergy Verified 11/14/21 09:23 Active Medications: Current Medications Lactated Ringer's (Lr) 1,000 mls @ 100 mls/hr IVCONT .Q10H CHERI Last Admin: 11/20/21 06:22 Dose: 100 mls/hr Documented by: Home Medications Medication Instructions Recorded Confirmed Last Taken Type loratadine 10 mg tablet (Claritin) 10 mg PO DAILY 08/29/21 11/14/21 09/03/21 05: 00 History pantoprazole 40 mg tablet,delayed 1 tab PO DAILY@1700 08/29/21 11/14/21 Unknown History release Exam Exam Date and Time: November 20, 2021 0716 Height,Weight and Vital Signs: Height 5 ft 4 in Weight 68.039 kg Last Vital Signs Temp 98.2 F 11/20/21 06:12 Pulse 74 11/20/21 06:12 Resp 16 11/20/21 06:12 BP 150/76 H 11/20/21 06:12 Pulse Ox 98 11/20/21 06:12 Airway Mallampati Class: III Neck ROM: Full Loose/Missing/Broken Teeth: Yes Heart: rrr Lungs: bl breath sounds Assessment and Plan Assessment Anesthesia Assessment: Anesthesia Plan Discussed Final Anesthetic Review Family History of Problems with Anesthesia: No History of Problems with Anesthesia: No NPO: Yes ASA Class: II Final Preanesthetic Review: Swati Risks/Benef Reviewed Patient Risk: Intermediate Procedure Risk: Intermediate Anesthetic Plan Anesthetic Plan: GA Disposition: Standard PACU
--- NOTE | 2021-11-20 07:23 | MHC.SHP ---
Pre-Procedural Eval Section A Date of Service: 11/20/21 The patient is an INPATIENT: No Changes since office visit: Yes Patient answered all questions; No Cold of Flu in the past 2 weeks, No New Medical Problems and No Changes in Medication The History & Physical has been completed within 30 days and I have reviewed it.: Yes Section B Chief Complaint: disease of gallbladder Allergies: Allergies Allergy/AdvReac Type Severity Reaction Status Date / Time No Known Allergies Allergy Verified 11/14/21 09:23 Plan Diagnosis/Plan: Unchanged I have reviewed the history and physical and performed a pertinent physical examination on my patient. No changes have occurred unless specified.
--- NOTE | 2021-11-20 08:31 | P.OP_ITS ---
Operative Note Operative Note Date of Service: 11/20/21 Narrative: Preoperative diagnosis: Acute acalculous cholecystitis, biliary dyskinesia Postoperative diagnosis: Same Procedure: Laparoscopic cholecystectomy Surgeon: Stefan Lombardo MD Director Of Fundraising: LONNIE Rod Anesthesia: General endotracheal Indications for procedure: 66-year-old female patient presenting with complaints of abdominal pain in the right upper quadrant associated with fatty food intolerance. Patient was found to have a normal appearing gallbladder by CT however on examination was tender in the right upper quadrant with positive Hood sign. Subsequent HIDA scan revealed delayed emptying of the gallbladder suggestive of biliary dyskinesia. Operative findings: Evidence of acute and chronic cholecystitis, no definite gallbladder stones Identified. Specimen: gallbladder Estimated blood : 2 mL Complications: none Procedure details: Patient was brought to the OR and placed in a supine position. After administering general anesthesia the patient's abdomen was prepped with ChloraPrep and draped in a sterile fashion. Local anesthesia consisting of 0.5% Sensorcaine without epinephrine was infiltrated in a periumbilical region. A 5 mm incision was made above the umbilicus in a transverse fashion. The Veress needle was then inserted while elevating abdominal cavity with towel clips. After positive drop test the abdomen was insufflated to a pressure of 15 mm of mercury. The Veress needle was then removed and a 5 mm trocar inserted. The camera was inserted in the abdomen explored. A 12 mm trocar was then placed in the epigastrium and two 5 mm trocars placed in the right upper quadrant. The patient was placed in reverse Trendelenburg positioning and rotated to the left. The gallbladder was grasped with the fundus and retracted cephalad.. The infundibulum was then grasped and retracted away from the liver bed. The Dolphin dissected was then used to dissect the peritoneum off the infundibulum to reveal the junction with the cystic duct. Cystic artery was noted slightly medial and posterior to the cystic duct. After obtaining a critical view the cystic duct was doubly clipped and divided. The cystic artery was then doubly clipped and divided. The gallbladder was then dissected off the liver bed using electrocautery with an L hook. Hemostasis was assured all times using the electrocautery. When the gallbladder is completely dissected off the liver bed was placed in an Endo- Catch bag and brought out through the epigastric incision. The gallbladder was sent to pathology for further examination. The abdomen was then re-examined. The liver bed was irrigated and suctioned dry. No bleeding or bile leak could be identified. CO2 was then evacuated and all trocars removed. Fascia was closed at the epigastric incision using a [id number] 0 Polysorb suture. Skin was closed in all incisions using a subcuticular 4 0 Polysorb suture. Sterile dressings consisting of Steri-Strips, 2 x 2 gauze, and Tegaderm were then applied. The patient tolerated the procedure well. Sponge instrument and needle counts reported as correct. The patient was transferred to PACU in stable condition.
[2021-11-20] MEDS: fentaNYL citrate/PF 100 MCG/2 ML VIAL 50 MCG IVPUSH (09:13)
[2021-11-20] MEDS: fentaNYL citrate/PF 100 MCG/2 ML VIAL 25 MCG IVPUSH (09:18)
[2021-11-20] MEDS: oxyCODONE HCl Immed Release 5 MG TABLET PO (09:21)
[2021-11-20] MEDS: ondansetron HCL 4 MG/2 ML VIAL IVPUSH (10:43)
== END 2021-11-20 10:51 | disposition home or self-care (01) ==
PROVIDERS: PCP Internal Medicine Geriatric Medicine; Visit Provider Surgery
PROC: 0FT44ZZ Resection of Gallbladder, Percutaneous Endoscopic Approach (ICD-10-PCS; CPT 47562; principal; 2021-11-20 07:30)
DX: K81.0 Acute cholecystitis (principal); K83.9 Disease of biliary tract, unspecified; K82.8 Other specified diseases of gallbladder; K22.70 Barrett's esophagus without dysplasia; K57.92 Diverticulitis of intestine, part unspecified, without perforation or abscess without bleeding; J30.2 Other seasonal allergic rhinitis; Z79.899 Other long term (current) drug therapy; Z87.891 Personal history of nicotine dependence
CPT/HCPCS: 47562; 88304; J0131; J1100; J2250; J2370; J2405; J3010

== ENCOUNTER → 2021-11-28 13:05 | Outpatient (BNVA) | payer MEDICARE, SELFPAY | PROVIDERS: PCP Internal Medicine Geriatric Medicine; Visit Provider Surgery | DX: Z48.815 Encounter for surgical aftercare following surgery on the digestive system (principal); Z90.49 Acquired absence of other specified parts of digestive tract | CPT/HCPCS: 99212 ==

== ENCOUNTER 2023-07-23 10:20 | Outpatient (AMB) | payer MEDICARE, SELFPAY ==
--- NOTE | 2023-07-23 10:24 | A.OFFVIS_ITS ---
Intake Vital Signs 3 07/23/23 10:38 Height 5 ft 4 in Weight 152 lb BMI 26.1 BP 130/80 Blood Pressure Location Lt brachial Position Sitting Intake Visit Reasons: Mole on left side of neck Intake Note: Patient is seen in office for evaluation of a lesion of the left side of the neck. Patient c/o: onset for years, admits to itchy, denies redness, discharge or any other concerns would like to have it removed Rv Technician Required: No Accompanied by: Self / Same As Patient Allergies No Known Allergies Allergy (Verified 07/23/23 10:37) Medication List - Last Reconciled 07/23/23 by Stefan Lombardo MD loratadine (Claritin) 10 mg PO DAILY pantoprazole 1 tab PO DAILY@1700 HPI HPI Comments 2 History of Present Illness0 Details 68-year-old female patient returning to the office for evaluation of a skin lesion on the left neck. This is been present for many years but is now increasing in size and causing some irritation and itching. She reports a previous lesion on the right side which was excised many years ago and apparently was benign. She denies any bleeding or discharge but does note the lesion gets irritated from the clothing. She is requesting excision. [facility] Medical History Biliary dyskinesia Back pain Migraines Elevated cholesterol Diverticulitis Seasonal allergies Barretts esophagus Surgical History History of esophagogastroduodenoscopy (EGD) Hx of colonoscopy Family History Mother Lung cancer, Onset Age: 50 Father Renal cancer Social History Alcohol intake: never Patient Tobacco Use Status: Former Tobacco user Quit Date: Review of Systems Const All systems reviewed & are unremarkable except as noted in HPI and below Physical Exam Const General: healthy appearing Nutritional Appearance: well nourished Orientation/consciousness: patient oriented x3 Limitations: no limitations Neck Other: Brown, slightly raised skin lesion to the left of midline in the anterior neck with a rough outer surface, appearing mildly inflamed. No ulceration is appreciated. Lesion measures approximately 7 mm in diameter. Neck images: 2 1. Site of with 7 mm skin lesion left neck Resp Effort & Inspection: normal respiratory effort Skin Other: Skin lesion left neck as noted above Neuro General: patient oriented x3 Extrem General: Yes no clubbing, cyanosis or edema Assessment & Plan Assessment & Plan (1) Pigmented skin lesion of uncertain behavior of neck: Code(s): L81.9 - Disorder of pigmentation, unspecified Plan Patient presents with a 7 mm raised irritated skin lesion of the left neck. I recommended an excision under local anesthesia as a minor surgery. After discussion of the procedure, risks and alternatives, she consents to the procedure. Coding Level of Care Code Est Pt Level 4 (00262) Diagnoses Pigmented skin lesion of uncertain behavior of neck L81.9
[2023-07-23 10:38] VITALS: BP 130/80; BMI 26.1
== END 2023-07-23 10:47 | disposition home or self-care (01) ==
PROVIDERS: PCP Internal Medicine Geriatric Medicine; Visit Provider Surgery
DX: L81.9 Disorder of pigmentation, unspecified (principal)
CPT/HCPCS: 99214

== ENCOUNTER → 2023-07-23 10:20 | Outpatient (BNVA) | payer MEDICARE, SELFPAY | PROVIDERS: PCP Internal Medicine Geriatric Medicine; Visit Provider Surgery | DX: L81.9 Disorder of pigmentation, unspecified (principal); L98.9 Disorder of the skin and subcutaneous tissue, unspecified | CPT/HCPCS: 99212 ==

== ENCOUNTER → 2024-11-14 14:35 | Outpatient (BNV) | payer MEDICARE, SELFPAY | PROVIDERS: PCP Internal Medicine Geriatric Medicine; Visit Provider Radiology Diagnostic Radiology | DX: R10.11 Right upper quadrant pain (principal) | CPT/HCPCS: 74176; 76705 ==